=== PATIENT | female | born 1980 | race Two or more races ===

== ENCOUNTER 2018-02-03 11:12 | Outpatient (CLI) | payer BC, MEDICAID ==
--- NOTE | 2018-02-07 16:44 | Non Stress Test Report ---
Non Stress Test Datetime Report Generated by CPN: 02/07/2018 16:44 DEMOGRAPHIC EGA NST: 35.0 INDICATION Indication for Study: Ordered by Provider; Other Indication for Study (NST) Other: AMA; H/O IUFD @ TERM VITAL SIGNS Temperature - NST: 97.7 Pulse - NST: 97 RESP - NST: 18 NBPSYS NST: 137 NBPDIA NST: 78 MONITORING Monitor Explained: Monitor Explained; Test Explained; Patient Verbalized Understanding Time on Monitor: 02/03/2018 11:27 Time off Monitor: 02/03/2018 12:03 NST Duration: 36 NST INTERVENTIONS NST Interventions: PO Hydration; Reposition Patient Physician Notified NST: P PANTOJA, CNM REVIEWED STRIP BABY A: [id number] BABY A Movement : Present Contraction Frequency : NONE FHR Baseline : 135 Accelerations : 15X15 Decelerations : None Variability : Moderate 6-25bpm NST Review: Meets Criteria for Reactive NST NST Review and Verified By : D bellavancsohnna RNC NST Results: Reactive NST REPORT Report Trigger: Send Report
== END 2018-02-03 12:10 | disposition home or self-care (01) ==
LOC: LC 11:12
PROVIDERS: ATTEND Obstetrics & Gynecology
PROC: 4A1HXCZ Monitoring of Products of Conception, Cardiac Rate, External Approach (ICD-10-PCS; principal; 2018-02-03)
DX: O09.293 Supervision of pregnancy with other poor reproductive or obstetric history, third trimester (principal); Z3A.35 35 weeks gestation of pregnancy
CPT/HCPCS: 59025

== ENCOUNTER 2018-02-10 16:30 | Outpatient (CLI) | payer BC, MEDICAID ==
--- NOTE | 2018-02-10 17:09 | Non Stress Test Report ---
Non Stress Test Datetime Report Generated by CPN: 02/10/2018 17:08 DEMOGRAPHIC EGA NST: 36.0 INDICATION Indication for Study: Ordered by Provider Indication for Study (NST) Other: repeat nst sent from office VITAL SIGNS Temperature - NST: 98.3 (Annotations: Data stored by CPN on behalf of user) MONITORING Monitor Explained: Monitor Explained; Test Explained; Patient Verbalized Understanding Time on Monitor: 02/10/2018 16:45 Time off Monitor: 02/10/2018 17:05 NST Duration: 20 NST INTERVENTIONS NST Interventions: None Physician Notified NST: A Shearer CNM BABY A: [id number] BABY A Movement : Present Contraction Frequency : denies FHR Baseline : 135 Accelerations : 15X15 Decelerations : None Variability : Moderate 6-25bpm NST Review: Meets Criteria for Reactive NST NST Review and Verified By : Adwoa Camp RNC NST Results: Reactive NST REPORT Report Trigger: Send Report
== END 2018-02-10 17:14 | disposition home or self-care (01) ==
LOC: LC 16:30
PROVIDERS: ATTEND Obstetrics & Gynecology
PROC: 4A1HXCZ Monitoring of Products of Conception, Cardiac Rate, External Approach (ICD-10-PCS; principal; 2018-02-10)
DX: O47.03 False labor before 37 completed weeks of gestation, third trimester (principal); O09.523 Supervision of elderly multigravida, third trimester; Z3A.36 36 weeks gestation of pregnancy
CPT/HCPCS: 59025

== ENCOUNTER 2018-02-24 20:03 | Outpatient (CLI) | payer BC, MEDICAID ==
[2018-02-24 20:32] LABS: APPEARANCE,URINE CLEAR; BILIRUBIN,URINE NEGATIVE (NEGATIVE); COLOR,URINE STRAW; GLUCOSE, URINE NEGATIVE (NEGATIVE); KETONES,URINE NEGATIVE (NEGATIVE); LEUKOCYTE ESTERASE,URINE TRACE (NEGATIVE); NITRITE,URINE NEGATIVE (NEGATIVE); PROTEIN,URINE NEGATIVE (NEGATIVE); URINE SPECIFIC GRAVITY 1.002; UROBILINOGEN,URINE NEGATIVE mg/dL (<2.0)
[2018-02-24 20:47] LABS: URINE AMPHETAMINES SCREEN NEGATIVE; URINE BARBITURATES SCREEN NEGATIVE; URINE BENZODIAZEPINES SCREEN NEGATIVE; URINE COCAINE SCREEN NEGATIVE; URINE MARIJUANA (THC) SCREEN NEGATIVE; URINE METHADONE SCREEN NEGATIVE; URINE PHENCYCLIDINE SCREEN NEGATIVE
--- NOTE | 2018-02-24 21:45 | RADIOLOGY REPORT (SQ) ---
EXAM DESCRIPTION: U/S PROFILE W/O STRESS COMPLETED DATE/TIME: 02/24/2018 9:36 pm REASON FOR STUDY: no fm, arrhythmia on efm COMPARISON: None. TECHNIQUE: Limited akins-scale realtime and static images of the fetus to measure specified parameter s. LIMITATIONS: None. FINDINGS: HEART RATE: 145 beats per minute. BREATHING MOVEMENT: 2 points. MOVEMENT: 2 points. POSTURE AND TONE: 2 points. QUALITATIVE EPHRAIM: 2 points. OTHER: Cephalic presentation. IMPRESSION: BIOPHYSICAL PROFILE: 03/22. Trimester of : Third - 28 weeks to delivery COMMENT: BREATHING MOVEMENTS: 2 POINTS: PRESENT 0 POINTS: ABSENT MOTION: 2 POINTS: PRESENT 0 POINTS: ABSENT TONE: 2 POINTS: PRESENT 0 POINTS: ABSENT AMNIOTIC FLUID VOLUME: 2 POINTS: LARGEST POCKET GREATER THAN 2 CM DEPTH. 0 POINTS: NO POCKET OF 2 CM. TECHNICAL DOCUMENTATION: JOB ID: [id number] 1922 [employer]- All Rights Reserved Reading location - IP/workstation name: [email or web address]
--- NOTE | 2018-02-24 22:33 | L&D Progress Notes ---
PROGRESS NOTES Datetime Report Generated by CPN: 02/24/2018 22:33 PROGRESS NOTE Comment: pt seen with decreased movement and noted to have irregular heart rate and had BPP of 8.. pt is to do kick counts and f/u if decreased movement. Also she will return for BPP nikolas and Son will follow up in the office for MFM consult and echo. SIGNATURE SIGNATURE: [id number];[id number] SIGNATURE: [id number] SIGNATURE: [id number] SIGNATURE: [id number] Signature: with User ID: [email or web address]
--- NOTE | 2018-02-24 23:12 | Non Stress Test Report ---
Non Stress Test Datetime Report Generated by CPN: 02/24/2018 23:12 INDICATION Indication for Study: Decreased Movement; Ordered by Provider VITAL SIGNS Temperature - NST: 98.6 Pulse - NST: 96 RESP - NST: 16 NBPSYS NST: 110 NBPDIA NST: 55 URINE RESULTS Urine Protein, NST: Negative Urine Ketones - NST: Negative Urine Glucose - NST: Negative Urine Blood - NST: Negative MONITORING Monitor Explained: Monitor Explained; Test Explained; Patient Verbalized Understanding NST INTERVENTIONS NST Interventions: PO Hydration; For Biophysical Profile Physician Notified NST: Dr. Lin BABY A: [id number] BABY A Movement : Decreased Contraction Frequency : rare FHR Baseline : utd Accelerations : brief period of accels were traced Decelerations : None Variability : moderate when tracing occurs NST Review: Questionable if Meets Criteria for Reactive NST NST Review: Questionable if Meets Criteria for Reactive NST NST Review and Verified By : Isela Hodges RN NST Results: Questionable NST COMMENTS NST Comments: arrhythmia heard on monitor, unable to continuously trace. Patient received bedside BPP. Results 03/22. Brief consistent tracing did show moderate variability with accelerations. Audible arrhythmia continued to be heard during labor check. Patient to come for repeat NST on Tuesday, and to the office Tuesday for MFM referral. Dr. Lin on unit and reviewed tracing and BPP results and discussed POC with patient. NST REPORT Report Trigger: Send Report
== END 2018-02-24 22:48 | disposition home or self-care (01) ==
LOC: LC 20:03
PROVIDERS: ATTEND Obstetrics & Gynecology Gynecology
PROC: 4A1HXCZ Monitoring of Products of Conception, Cardiac Rate, External Approach (ICD-10-PCS; principal; 2018-02-24)
DX: O36.8130 Decreased fetal movements, third trimester, not applicable or unspecified (principal); O36.8330 Maternal care for abnormalities of the fetal heart rate or rhythm, third trimester, not applicable or unspecified; O09.523 Supervision of elderly multigravida, third trimester; Z3A.38 38 weeks gestation of pregnancy
CPT/HCPCS: 76819; 80307; 81005

== ENCOUNTER 2018-02-26 16:26 | Observation (INO) | payer BC, MEDICAID ==
--- NOTE | 2018-02-26 18:53 | RADIOLOGY REPORT (SQ) ---
EXAM DESCRIPTION: U/S PROFILE W/O STRESS COMPLETED DATE/TIME: 02/26/2018 6:01 pm REASON FOR STUDY: arrythmia, unable to obtain NST COMPARISON: None. TECHNIQUE: Limited akins-scale realtime and static images of the fetus to measure specified parameter s. LIMITATIONS: None. FINDINGS: HEART RATE: 141 beats per minute. EPHRAIM: 4.6 cm. BREATHING MOVEMENT: 0 points. MOVEMENT: 2 points. POSTURE AND TONE: 2 points. QUALITATIVE EPHRAIM: 2 points. OTHER: Vertex presentation. IMPRESSION: BIOPHYSICAL PROFILE: 01/20. Trimester of : Third - 28 weeks to delivery COMMENT: BREATHING MOVEMENTS: 2 POINTS: PRESENT 0 POINTS: ABSENT MOTION: 2 POINTS: PRESENT 0 POINTS: ABSENT TONE: 2 POINTS: PRESENT 0 POINTS: ABSENT AMNIOTIC FLUID VOLUME: 2 POINTS: LARGEST POCKET GREATER THAN 2 CM DEPTH. 0 POINTS: NO POCKET OF 2 CM. TECHNICAL DOCUMENTATION: JOB ID: [id number] [id number] 2010 [employer]- All Rights Reserved Reading location - IP/workstation name: [email or web address]
--- NOTE | 2018-02-27 06:48 | Admission Physical ---
Datetime Report Generated by CPN: 02/27/2018 06:47 CURRENT ADMISSION Chief Complaint: Other Indication for Induction: Not Applicable Admit Impression : , Intrauterine Admit Plan: Observation/Evaluation ALLERGIES Medication Allergies: Yes Medication Allergies: ketorolac tromethamine/MO/Shortness of Br (02/03/2018); Sulfa (Sulfonamide Antibiotics) (02/03/2018); codeine/SV/Shortness of Br (02/03/2018) Latex: No Latex Allergies OBSTETRICAL HISTORY EDC: 03/10/2018 00:00 : 4 Para: 3 Term: 3 : 0 SAB: 0 IAB: 0 Ectopic: 0 Livin Cesareans: 0 VBACs: 0 Multiple Births: 0 Gestational Diabetes: No Rh Sensitization: No Incompetent Cervix: No RIDDHI: No Infertility: No ART Treatment: No Uterine Anomaly: No IUGR: No Hx Previous C/S: No Macrosomia: No Hx Loss/Stillborn: Yes PIH: No Hx : No Placenta Previa/Abruption: No Depression/PP Depression: No PTL/PROM: No Post Hemorrhage: No Current Procedures: Ultrasound; NST; BPP Obstetrical History Comments: g1- 1998 7lbs 12oz male g2- 2006 8lbs 2oz male - 2009 8lb 0oz male stillborn at 39 weeks due to true knot g4- current SEE RECORDS Alcohol: No Marijuana : No Cocaine: No Other Illicit Drugs: No Cigarettes: Never Smoker. [id number] MEDICAL HISTORY Diabetes: No Blood Transfusion: No Pulmonary Disease (Asthma, TB): No Breast Disease: No Hypertension: No Silk Conditioner Surgery: No Heart Disease: No Hosp/Surgery: Yes Autoimmune Disorder: No Anesthetic Complications: No Kidney Disease: No Abnormal Pap Smear: No Neuro/Epilepsy: No Psychiatric Disorders: No Other Medical Diseases: No Hepatitis/Liver Disease: No Significant Family History: No Varicosities/Phlebitis: No Trauma/Violence : No Thyroid Dysfunction: No Medical History Comments: childbirth x 3, gallbladder removal INFECTIOUS HISTORY Gonorrhea: No Genital Herpes: No Chlamydia: No Tuberculosis: No Syphilis: No Hepatitis: No HIV/AIDS Exposure: No Rash or Viral Illness: No HPV: Yes PHYSICAL EXAM General: Normal HEENT: Normal Neurologic: Normal Thyroid: Normal Heart: Normal Lungs: Normal Breast: Deferred Back: Normal Abdomen: Normal Genitourinary Exam: Normal Extremities: Normal DTRs: Normal Pelvic Type: Adequate FETUS A EGA: 38.3 Admit Comment: cardiac activity present PLANS FOR LABOR AND DELIVERY Labor and Delivery: None Pain Management: Epidural Feeding Preference: Breast Benefit of Breast Feed Discussed: Yes Circumcision: N/A INFORMED CONSENT Signature: with User ID: [email or web address]
--- NOTE | 2018-02-27 08:30 | L&D Progress Notes ---
PROGRESS NOTES Datetime Report Generated by CPN: 02/27/2018 08:30 PROGRESS NOTE Impression: Reassuring Heart Rate Comment: Eating bkf, does not want to be induced unless it is a emergency, talked with Dr. Morales, repeat BPP, no arrhythmia heard this AM, heart regular, Cat 1 strip, rare uc SIGNATURE SIGNATURE: [id number];[id number];[id number] SIGNATURE: [id number];[id number];[id number] SIGNATURE: 14,[id number];10,[id number] Assignment: Jennifer Morales MD Signature: with User ID: [email or web address] : with User ID: [email or web address]
--- NOTE | 2018-02-27 10:03 | RADIOLOGY REPORT (SQ) ---
EXAM DESCRIPTION: U/S PROFILE W/O STRESS COMPLETED DATE/TIME: 02/27/2018 9:55 am REASON FOR STUDY: 38.3 weeks, repeat BPP for arrhythmia COMPARISON: OB ultrasound 02/07/2018, 02/24/2018, 02/27/2018 TECHNIQUE: Limited akins-scale realtime and static images of the fetus to measure specified parameter s. LIMITATIONS: None. FINDINGS: HEART RATE: 139 beats per minute. EPHRAIM: Largest pocket 5.5 cm cm. BREATHING MOVEMENT: 2 points. MOVEMENT: 2 points. POSTURE AND TONE: 2 points. QUALITATIVE EPHRAIM: 2 points. OTHER: Fetus cephalic orientation. IMPRESSION: BIOPHYSICAL PROFILE: 03/22. Trimester of : Third - 28 weeks to delivery COMMENT: BREATHING MOVEMENTS: 2 POINTS: PRESENT 0 POINTS: ABSENT MOTION: 2 POINTS: PRESENT 0 POINTS: ABSENT TONE: 2 POINTS: PRESENT 0 POINTS: ABSENT AMNIOTIC FLUID VOLUME: 2 POINTS: LARGEST POCKET GREATER THAN 2 CM DEPTH. 0 POINTS: NO POCKET OF 2 CM. TECHNICAL DOCUMENTATION: JOB ID: [id number]- All Rights Reserved Reading location - IP/workstation name: [email or web address]
[2018-02-27 11:30] VITALS: BP 133/78
--- NOTE | 2018-03-02 14:57 | Non Stress Test Report ---
Non Stress Test Datetime Report Generated by CPN: 03/02/2018 14:56 DEMOGRAPHIC EGA NST: 38.3 INDICATION Indication for Study: Other Indication for Study (NST) Other: arrhythmia VITAL SIGNS Temperature - NST: 97.9 Pulse - NST: 90 RESP - NST: 20 NBPSYS NST: 133 NBPDIA NST: 78 MONITORING Monitor Explained: Monitor Explained; Test Explained; Patient Verbalized Understanding Time on Monitor: 02/27/2018 06:48 Time off Monitor: 02/27/2018 07:18 NST Duration: 30 NST INTERVENTIONS NST Interventions: PO Hydration; Reposition Patient Physician Notified NST: Dr Andrew viewed strip on unit BABY A: [id number] BABY A Movement : Present Contraction Frequency : irregular FHR Baseline : 130 Accelerations : 15X15 Decelerations : Variable Variability : Moderate 6-25bpm NST Review: Meets Criteria for Reactive NST NST Review and Verified By : JOSE CRUZ Brown Results: Reactive NST REPORT Report Trigger: Send Report
== END 2018-02-27 11:39 | disposition home or self-care (01) ==
LOC: LC 16:26 → LR 18:48
PROVIDERS: ADMIT Obstetrics & Gynecology Gynecology; ATTEND Obstetrics & Gynecology Gynecology
PROC: 4A0HXCZ Measurement of Products of Conception, Cardiac Rate, External Approach (ICD-10-PCS; principal; 2018-02-27)
DX: O76 Abnormality in fetal heart rate and rhythm complicating labor and delivery (principal); Z87.59 Personal history of other complications of pregnancy, childbirth and the puerperium; Z90.49 Acquired absence of other specified parts of digestive tract
CPT/HCPCS: 94760; 76819 ×2; 59025; G0378 ×2; G0379

== ENCOUNTER 2018-03-02 15:03 | Inpatient (IN) | payer BC, MEDICAID ==
[2018-03-02] MEDS ORDERED: DINOPROSTONE 10 MG VAGINAL INSERT.SR PV PRN (16:18)
[2018-03-02] MEDS ORDERED: OXYTOCIN/NORMAL SALINE 20 UNIT/1,000 ML RTUINJ IV PRN (16:18)
[2018-03-02] MEDS ORDERED: RINGERS SOLUTION,LACTATED 300 ML IV ONE (16:18)
[2018-03-02] MEDS ORDERED: DINOPROSTONE 10 MG VAGINAL INSERT.SR ONE (16:59)
[2018-03-02 17:04] LABS: ABSOLUTE EOSINOPHILS # (AUTO) 0.1 10^3/uL (0.0-0.6); ABSOLUTE LYMPHOCYTES (AUTO) 2.1 10^3/uL (0.5-4.7); ABSOLUTE MONOCYTES (AUTO) 0.6 10^3/uL (0.1-1.4); ABSOLUTE NEUT (AUTO) 7.3 10^3/uL (1.7-8.2); BASOPHILS % (AUTO) 0.4 % (0-2); EOSINOPHILS % (AUTO) 0.7 % (0-6); HEMATOCRIT 35.3 % (36.0-47.0); HEMOGLOBIN 12.1 g/dL (12.0-15.5); LYMPHOCYTES % (AUTO) 20.5 % (13-45); MEAN CORPUSCULAR HEMOGLOBIN 28.8 pg (27.0-33.4); MEAN CORPUSCULAR HGB CONC 34.4 g/dL (32.0-36.0); MEAN CORPUSCULAR VOLUME 84 fl (80-97); PLATELET COUNT 283 10^3/uL (150-450); RED BLOOD COUNT 4.21 10^6/uL (3.72-5.28); RED CELL DISTRIBUTION WIDTH 14.1 % (11.5-14.0); SEGMENTED NEUTROPHILS % (AUTO) 72.4 % (42-78); TOTAL CELLS COUNTED % (AUTO) 100 %; WHITE BLOOD COUNT 10.1 10^3/uL (4.0-10.5)
[2018-03-02 17:41] LABS: APPEARANCE,URINE SLIGHTLY-CLOUDY; BILIRUBIN,URINE NEGATIVE (NEGATIVE); COLOR,URINE YELLOW; GLUCOSE, URINE NEGATIVE (NEGATIVE); KETONES,URINE NEGATIVE (NEGATIVE); LEUKOCYTE ESTERASE,URINE SMALL (NEGATIVE); NITRITE,URINE NEGATIVE (NEGATIVE); PROTEIN,URINE NEGATIVE (NEGATIVE); URINE SPECIFIC GRAVITY 1.006; UROBILINOGEN,URINE NEGATIVE mg/dL (<2.0)
[2018-03-02 17:56] LABS: URINE AMPHETAMINES SCREEN NEGATIVE; URINE BARBITURATES SCREEN NEGATIVE; URINE BENZODIAZEPINES SCREEN NEGATIVE; URINE MARIJUANA (THC) SCREEN NEGATIVE; URINE METHADONE SCREEN NEGATIVE; URINE PHENCYCLIDINE SCREEN NEGATIVE
[2018-03-02 17:57] LABS: URINE COCAINE SCREEN NEGATIVE
[2018-03-03] MEDS ORDERED: ZOLPIDEM TARTRATE 5 MG TABLET ONE (02:25)
[2018-03-03] MEDS ORDERED: OXYTOCIN/NORMAL SALINE 20 UNIT/1,000 ML RTUINJ ONE (08:23)
[2018-03-03] MEDS ORDERED: LIDOCAINE 1% INJ-PF (10 MG/ML) 30 ML SDV ONE (08:23)
[2018-03-03] MEDS ORDERED: MISOPROSTOL 0.2 MG TABLET ONE (08:23)
[2018-03-03] MEDS: RINGERS SOLUTION,LACTATED 1,000 ML IV PRN ×2 (08:44→20:29)
[2018-03-03] MEDS ORDERED: MISOPROSTOL 0.1 MG TABLET ONE (14:21)
[2018-03-03] MEDS ORDERED: MISOPROSTOL 0.1 MG TABLET PV ONE (15:00)
[2018-03-03] MEDS ORDERED: MISOPROSTOL 0.1 MG TABLET PO ONE (15:00)
[2018-03-03] MEDS ORDERED: EPHEDRINE SULFATE INJ 50 MG/1 ML AMPULE ONE (19:19)
[2018-03-03] MEDS ORDERED: FENTANYL/BUPIVACAINE/NS/PF 300 MCG/150 ML RTUINJ EPI ONE (19:20)
[2018-03-03] MEDS ORDERED: BUPIVACAINE HCL 0.25 % INJ/PF (2.5 MG/1 ML) 30 ML VIAL ONE (19:20)
[2018-03-03] MEDS ORDERED: OXYTOCIN/NORMAL SALINE 20 UNIT/1,000 ML RTUINJ IV PRN (22:38)
[2018-03-03] MEDS ORDERED: MAGNESIUM HYDROXIDE SUSP 30 ML UDCUP PO PRN (22:38)
[2018-03-03] MEDS ORDERED: PROMETHAZINE HCL INJ 25 MG/1 ML VIAL IV PRN (22:38)
[2018-03-03] MEDS ORDERED: BENZOCAINE/MENTHOL AEROSOL SPRAY 56 ML TOP PRN (22:38)
[2018-03-03] MEDS ORDERED: ACETAMINOPHEN WITH CODEINE #3 TABLET PO PRN ×2 (22:38)
[2018-03-03] MEDS ORDERED: ZOLPIDEM TARTRATE 5 MG TABLET PO PRN (22:38)
[2018-03-03] MEDS ORDERED: NA PHOS,M-B/NA PHOS,DI-BA (ADULT) 133 ML ENEMA PR PRN (22:38)
[2018-03-03] MEDS ORDERED: PSEUDOEPHEDRINE HCL 30 MG TABLET PO PRN (22:38)
[2018-03-03] MEDS ORDERED: DIPH/PERTUSS(ACELL)/TETANUS VAC/PF 0.5 ML SYR (>=10YO) IM PRN (22:38)
[2018-03-03] MEDS ORDERED: MEASLES,MUMPS&RUBELLA VACC/PF 0.5 ML VIAL SUBCUT PRN (22:38)
[2018-03-03] MEDS ORDERED: GLYCERIN/WITCH HAZEL LEAF 1 EACH MED..PAD TP PRN (22:38)
[2018-03-03] MEDS ORDERED: PROMETHAZINE HCL 25 MG SUPP.RECT PR PRN (22:38)
[2018-03-03] MEDS ORDERED: DIBUCAINE 1% OINTMENT 28 GM TP PRN (22:38)
[2018-03-03] MEDS ORDERED: ACETAMINOPHEN 650 MG SUPP.RECT PR PRN (22:38)
[2018-03-03] MEDS ORDERED: DIPHENHYDRAMINE HCL 25 MG CAPSULE PO PRN (22:38)
[2018-03-03] MEDS ORDERED: PROMETHAZINE HCL 25 MG TABLET PO PRN (22:38)
--- NOTE | 2018-03-03 22:55 | Warning Signs in Babies ---
VOD Warning Signs Datetime Report Generated by [facility]: 03/03/2018 22:55 VOD#608 -Warning Signs in Babies: Needs to be viewed. (02/03/2018 11:22:Judy Vinson RN)
[2018-03-04] MEDS ORDERED: IBUPROFEN 800 MG TABLET ONE (00:06)
--- NOTE | 2018-03-04 00:58 | Delivery Summary ---
Del Sum A-C Datetime Report Generated by CPN: 03/04/2018 00:58 DELIVERY PERSONNEL DELIVERY PERSONNEL: [id number] Delivery Doctor:: Jennifer Morales MD Labor and Delivery Nurse:: Judy Vinson RNcarbonation equipment operator Nurse:: Alessandra Hodges RN Nursery Nurse:: Nathaly Andres RN Estate Manager/DINING CAR STEWARD: Milvia Barron, SALESPERSON [employer] MATERNAL INFORMATION Delivery Anesthesia: Epidural Medications After Delivery: Pitocin Bolus-Please Comment; Pitocin Drip 20 Units/1000ml NSS Meds After Delivery Comment: pitocin bolusing per order Estimated Blood Loss (ml): 200 Maternal Complications: Abnormal Cord Length Other Maternal Complications: velamatous cord insertion Complication Details: induced for arrhythmia LABOR SUMMARY EDC: 03/10/2018 00:00 No. Babies in Womb: 1 Attempted: No Labor Anesthesia: Epidural LABOR INFORMATION Reason for Induction: Other Reason for Induction- Other: arrhythmia, hx term stillborn Onset of Labor: 03/03/2018 18:43 Complete Dilatation: 03/03/2018 22:13 Cervical Ripening Agents: Cervidil; Cytotec @ Other Ripening Agents: Cytotec 25 mcg PV Oxytocin: Induction Group B Beta Strep: Negative Steroids Given: None Reason Steroids Not Administered: Not Applicable MEMBRANES Membranes Rupture Method: Artificial Rupture of Membranes: 03/03/2018 18:43 Length of Rupture (hr): 3.72 Amniotic Fluid Color: Clear Amniotic Fluid Amount: Small Amniotic Fluid Odor: Normal STAGES OF LABOR Stage 1 hr: 3 Stage 1 min: 30 Stage 2 hr: 0 Stage 2 min: 13 Stage 3 hr: 0 Stage 3 min: 5 Total Time in Labor hr: 3 Total Time in Labor min: 48 VAGINAL DELIVERY Episiotomy: None Laceration #1: None Laceration Extension #1: N/A Laceration Repair: Not Applicable Sponge Count Correct: N/A Sharps Count Correct: N/A CSECTION DELIVERY Primary Indication: N/A Secondary Indication: N/A CSection Incision: N/A BABY A INFORMATION Delivery Date/Time: 03/03/2018 22:26 Method of Delivery: Vaginal Born in Route : No : N/A Forceps: N/A Vacuum Extraction: N/A Shoulder Dystocia : Yes SHOULDER DYSTOCIA BABY A Delivery of Head: 03/03/2018 22:25 Time Head to Delivery : 1.0 1st Intervention to Resolve: Gentle Attempt at Traction, Assisted by Maternal Expulsive Efforts 2nd Intervention to Resolve: McRobert's Maneuver 3rd Intervention to Resolve: Suprapubic Pressure 4th Intervention to Resolve: Posterior Arm Release Verify NO Fundal Pressure: No Fundal Pressure Applied Arm Under Symphisis at Del: Right PRESENTATION/POSITION BABY A Presentation: Cephalic Cephalic Presentation: Vertex Vertex Position: Left Occipital Anterior Breech Presentation: N/A PLACENTA INFORMATION BABY A Placenta Delivery Time : 03/03/2018 22:31 Placenta Method of Delivery: Spontaneous Placenta Status: Delivered SCORES BABY A Heart Rate 1 min: >100 bpm Resp Effort 1 min: Good Cry Reflex Irritability 1 min: Cough or Sneeze or Pulls Away Muscle Tone 1 min: Active Motion Color 1 min: Blue/Pale Resuscitation Effort 1 min: Tactile Stimulation SCORE 1 MIN: 8 Heart Rate 5 min: >100 bpm Resp Effort 5 min: Good Cry Reflex Irritability 5 min: Cough or Sneeze or Pulls Away Muscle Tone 5 min: Active Motion Color 5 min: Body [place], Extremities Blue Resuscitation Effort 5 min: Tactile Stimulation SCORE 5 MIN: 9 INFORMATION BABY A Gestational Age at Delivery: 39.0 Gestational Status: Full Term- 39- 40.6 Weeks Outcome : Liveborn Infant Condition : Stable Sex: Female IDENTIFICATION BABY A Verification Date/Time: 03/03/2018 22:40 ID Band Number: [id number] Mother's Name Verified: Yes Infant RN Verifying Infant: Carroll GageSilvia BILLINGSLEY Additional Verifying Personnel: César Monsalve CNA WEIGHT/LENGTH BABY A Infant Birthweight (gm): 3670 Weight (lb): 8 Weight (oz): 1 Length (in): 20.50 Infant Length (cm): 52.07 CORD INFORMATION BABY A No. Cord Vessels: 3 Nuchal Cord : Around Neck x1, Loose Cord Blood Taken: Yes-For Storage (Mom's Blood type +) Suction: Mouth; Nose ASSESSMENT BABY A Complications: Multiple Variable Decels; Shoulder Dystocia Physical Findings at Delivery: Caput Succedaneum Infant Respirations: Appears Normal Skin to Skin: Yes Skin to Skin Time (min): 45 Manager Mortgage/ALS Called : No Transferred To: Remains with Mother BABY B INFORMATION : N/A SIGNATURES Signature: with User ID: [email or web address]
[2018-03-04] MEDS: IBUPROFEN 800 MG TABLET PO SCH ×3 (06:23→22:49)
[2018-03-04 08:11] LABS: HEMATOCRIT 35.1 % (36.0-47.0); HEMOGLOBIN 11.9 g/dL (12.0-15.5); MEAN CORPUSCULAR HEMOGLOBIN 28.4 pg (27.0-33.4); MEAN CORPUSCULAR HGB CONC 33.9 g/dL (32.0-36.0); MEAN CORPUSCULAR VOLUME 84 fl (80-97); PLATELET COUNT 289 10^3/uL (150-450); RED BLOOD COUNT 4.18 10^6/uL (3.72-5.28); RED CELL DISTRIBUTION WIDTH 14.1 % (11.5-14.0); WHITE BLOOD COUNT 16.3 10^3/uL (4.0-10.5)
[2018-03-04] MEDS: PRENATAL VITAMIN W DHA CAPSULE PO SCH (10:39)
[2018-03-04] MEDS: SENNOSIDES/DOCUSATE 8.6-50 MG 1 EACH TABLET PO SCH (10:40)
[2018-03-04] MEDS: FERROUS SULFATE 325 MG TABLET PO SCH ×2 (10:40→17:38)
[2018-03-04] MEDS: DOCUSATE SODIUM 100 MG CAPSULE PO SCH ×2 (10:40→17:37)
[2018-03-04] MEDS: FAMOTIDINE 20 MG TABLET PO SCH ×2 (10:40→22:50)
--- NOTE | 2018-03-04 12:07 | PDOC PROGRESS REPORT ---
Subjective-OB Progress Note for:: 03/04/18 Physical Exam (OB) Vital Signs: Temp Pulse Resp BP Pulse Ox 98.7 F 89 16 115/69 97 03/04/18 07:44 03/04/18 07:44 03/04/18 07:44 03/04/18 07:44 03/04/18 07:44 Intake & Output 03/03/18 03/04/18 03/05/18 06:59 06:59 06:59 Weight 108.1 kg - PIH/Pre-Eclampsia DTR's: 1 + Clonus: Negative Headache: Absent Epigastric Pain: No Visual Changes: No - Lochia Lochia Amount: Small 10-25 ml Lochia Color: Rubra/Red - Abdomen Description: Soft, Round Hernia Present: No Bowel Sounds: Normoactive Flatus Presence: Present Stool: No Fundal Description: Firm, Midline Fundal Height: u/u - u/2 Objective-Diagnostic Laboratory: 03/04/18 07:38 03/04/18 07:38 WBC 16.3 H RBC 4.18 Hgb 11.9 L Hct 35.1 L MCV 84 MCH 28.4 MCHC 33.9 RDW 14.1 H Plt Count 289
[2018-03-04 20:23] VITALS: BP 121/84
[2018-03-05] MEDS: IBUPROFEN 800 MG TABLET PO SCH (05:01)
[2018-03-05] MEDS: PRENATAL VITAMIN W DHA CAPSULE PO SCH (09:20)
[2018-03-05] MEDS: FERROUS SULFATE 325 MG TABLET PO SCH (09:20)
[2018-03-05] MEDS: DOCUSATE SODIUM 100 MG CAPSULE PO SCH (09:20)
[2018-03-05] MEDS: SENNOSIDES/DOCUSATE 8.6-50 MG 1 EACH TABLET PO SCH (09:20)
[2018-03-05] MEDS: FAMOTIDINE 20 MG TABLET PO SCH (09:20)
--- NOTE | 2018-03-05 10:02 | PDOC PROGRESS REPORT ---
Subjective-OB Progress Note for:: 03/05/18 Subjective: Ready to go home. Physical Exam (OB) Vital Signs: Temp Pulse Resp BP Pulse Ox 98.7 F 86 18 121/84 96 03/05/18 10:00 03/05/18 10:00 03/05/18 10:00 03/04/18 19:38 03/05/18 10:00 - PIH/Pre-Eclampsia DTR's: 1 + Clonus: Negative Headache: Absent Epigastric Pain: No Visual Changes: No - Lochia Lochia Amount: Scant < 10 ml Lochia Color: Rubra/Red - Abdomen Description: Tender, Soft Hernia Present: No Bowel Sounds: Normoactive Flatus Presence: Present Stool: Yes Fundal Description: Firm, Midline Fundal Height: u/u - u/2 Objective-Diagnostic Laboratory: 03/04/18 07:38
--- NOTE | 2018-03-05 10:08 | PDOC DISCHARGE SUMMARY ---
Final Diagnosis Discharge Date: 03/05/18 - Final Diagnosis (1) Shoulder (girdle) dystocia during labor and deliver, delivered Is this a current diagnosis for this admission?: Yes (2) History of stillbirth Is this a current diagnosis for this admission?: Yes (3) cardiac arrhythmia Is this a current diagnosis for this admission?: Yes (4) Delivery normal Is this a current diagnosis for this admission?: Yes (5) Is this a current diagnosis for this admission?: Yes Discharge Data - Discharge Medication Home Medications: Vit No.129/Iron/Folic [ One Daily Tablet] 1 tab PO DAILY Gestational Age: 39.0 wks Reason(s) for Admission: Induction of Labor, Other Procedures: Ultrasound Intrapartum Procedure(s): Spontaneous Vaginal Delivery - Data Baby 1 Female at 1 minute: 8 at 5 minutes: 9 Weight: 3.657 kg Home with Mother: Yes Complications: No - Diagnosis Test Laboratory: Temp Pulse Resp BP Pulse Ox 98.7 F 86 18 121/84 96 03/05/18 10:00 03/05/18 10:00 03/05/18 10:00 03/04/18 19:38 03/05/18 10:00 03/02/18 03/02/18 03/04/18 15:03 16:44 07:38 RBC 4.21 4.18 Hgb 12.1 11.9 L Hct 35.3 L 35.1 L Urine Opiates Screen NEGATIVE - Discharge information/Instructions Discharge Activity: Activity As Tolerated, Balance Activity w/Rest, No Lifting Over 10 Pounds, No Lifting/Push/Pulling, Pelvic Rest, Slowly Increase Activity, No tub bath Discharge Diet: Regular Disposition: HOME, SELF-CARE Follow up with: [facility] in: 4, Weeks
== END 2018-03-05 12:15 | disposition home or self-care (01) | DRG 775 ==
LOC: LR 15:03 → 2S 03-04 01:06
PROVIDERS: ADMIT Obstetrics & Gynecology Gynecology; ATTEND Obstetrics & Gynecology Gynecology
PROC: 4A1HXCZ Monitoring of Products of Conception, Cardiac Rate, External Approach (ICD-10-PCS; 2018-03-02)
PROC: 10E0XZZ Delivery of Products of Conception, External Approach (ICD-10-PCS; principal; 2018-03-03)
PROC: 3E033VJ Introduction of Other Hormone into Peripheral Vein, Percutaneous Approach (ICD-10-PCS; 2018-03-03)
PROC: 3E0P7VZ Introduction of Hormone into Female Reproductive, Via Natural or Artificial Opening (ICD-10-PCS; 2018-03-03)
PROC: 10907ZC Drainage of Amniotic Fluid, Therapeutic from Products of Conception, Via Natural or Artificial Opening (ICD-10-PCS; 2018-03-03)
DX: O76 Abnormality in fetal heart rate and rhythm complicating labor and delivery (principal); O66.0 Obstructed labor due to shoulder dystocia; O43.123 Velamentous insertion of umbilical cord, third trimester; O69.89X0 Labor and delivery complicated by other cord complications, not applicable or unspecified; O69.81X0 Labor and delivery complicated by cord around neck, without compression, not applicable or unspecified; Z3A.39 39 weeks gestation of pregnancy; Z37.0 Single live birth
CPT/HCPCS: 36415; 80307; 81005; 85025; 85027; 86592; 86850; 86900; 86901; J2590; J3010; J3490

== ENCOUNTER → 2019-08-03 | Outpatient (CLI) | payer SELFPAY ==
[2019-08-03 19:02] LABS: CHLAM PCR NOT DETECTED (NOT DETECT)
== END ==
LOC: LAB 17:15
PROVIDERS: ATTEND Nurse Practitioner Acute Care
DX: R30.0 Dysuria (principal)
CPT/HCPCS: 87086; 87088; 87186; 87491; 87591